=== PATIENT | female | born 1970 | race Caucasian/White ===

== ENCOUNTER 2016-05-17 09:49 | Outpatient (CLI) | payer OTHER ==
[2016-05-17 12:31] LABS: #Basophils 0.1 thou/uL (0.0-0.2); #Eosinphils 0.2 thou/uL (0.0-0.7); #Lymphocytes 2.9 thou/uL (1.20-3.40); #Monocytes 0.3 thou/uL (0.11-0.59); #Neutrophils 3.2 thou/uL (1.40-6.50); %Basophils 1.3 % (0.0-1.0); %Eosinophils 2.7 % (0.0-10.0); %Lymphocytes 43.5 % (21.0-51.0); Hematocrit 46.5 % (36.0-47.0); Mean Platelet Volume 6.6 fL (7.4-10.4); Red Blood Cell (RBC) Count 5.15 mill/uL (4.20-5.40); White Blood Cell (WBC) Count 6.7 thou/uL (4.8-10.8)
[2016-05-17 12:47] LABS: ALT (SGPT) 66 U/L (0-55); AST (SGOT) 41 U/L (5-34); Alkaline Phosphatase 87 U/L (40-150); Anion Gap 17 mmol/L (10-20); BUN (Urea Nitrogen) 13 mg/dL (7.0-18.7); Bilirubin, Total 0.5 mg/dL (0.2-1.2); Calc. Creatinine Clearance 0 mL/min (70-130); Carbon Dioxide 21 mmol/L (22-29); Chloride 105 mmol/L (98-107); Estimated GFR-MDRD 90; Globulin 3.2 g/dL (2.4-3.5); LDL Cholesterol, Calculated 187 mg/dL; Protein, Total 7.4 g/dL (6.0-8.3)
== END 2016-05-17 09:50 | disposition home or self-care (01) ==
LOC: NAVSJIPCSP 09:49
PROVIDERS: ATTEND Internal Medicine
DX: E03.9 Hypothyroidism, unspecified (principal); E78.5 Hyperlipidemia, unspecified; M47.27 Other spondylosis with radiculopathy, lumbosacral region
CPT/HCPCS: 36415; 80053; 80061; 84443; 85025

== ENCOUNTER 2016-07-04 11:26 | Outpatient (CLI) | payer OTHER | END 2016-07-04 11:27 | LOC: NAVSJIPCSP 11:26 | PROVIDERS: ATTEND Internal Medicine | DX: N30.00 Acute cystitis without hematuria (principal) | CPT/HCPCS: 87086 ==

== ENCOUNTER 2016-10-18 12:36 | Outpatient (CLI) | payer OTHER | END 2016-10-18 12:37 | disposition home or self-care (01) | LOC: NAVSJIPCSP 12:36 | DX: N89.8 Other specified noninflammatory disorders of vagina (principal) | CPT/HCPCS: 87480; 87510; 87660 ==

== ENCOUNTER 2017-07-28 10:28 | Outpatient (CLI) | payer BC | END 2017-07-28 10:29 | disposition home or self-care (01) | LOC: NAV DTY OP 10:28 | PROVIDERS: ATTEND Internal Medicine | DX: R73.09 Other abnormal glucose (principal) | CPT/HCPCS: 97802 ==

== ENCOUNTER 2018-02-05 12:54 | Outpatient (CLI) | payer BC ==
[2018-02-05 13:05] LABS: Bilirubin Negative (Negative); Blood, Urine Large (Negative); Clarity Slightly Cloudy (Clear); Glucose, Urine (Dipstick) Negative (Negative); Leukocyte Large (Negative); Nitrite Negative (Negative); Protein, Urine (Dipstick) 30 mg/dL (Neg-Trace); Specific Gravity, Urine 1.015 (1.005-1.030)
[2018-02-05 13:11] LABS: #Basophils 0.1 thou/uL (0.0-0.2); #Eosinphils 0.2 thou/uL (0.0-0.7); #Lymphocytes 5.1 thou/uL (1.20-3.40); #Monocytes 0.9 thou/uL (0.11-0.59); #Neutrophils 10.8 thou/uL (1.40-6.50); %Basophils 0.6 % (0.0-1.0); %Eosinophils 1.4 % (0.0-10.0); %Lymphocytes 29.6 % (21.0-51.0); %Monocytes 5.4 % (0.0-10.0); Hemoglobin 15.1 g/dL (12.0-16.0); Mean Corpuscular HGB CONC 32.8 g/dL (32.0-36.0); Mean Corpuscular Volume 88.3 fL (78.0-98.0); Mean Platelet Volume 7.9 fL (7.4-10.4); Platelet Count 383 thou/uL (130-400); RBC Distribution Width 12.4 % (11.5-14.5); Red Blood Cell (RBC) Count 5.21 mill/uL (4.20-5.40); White Blood Cell (WBC) Count 17.1 thou/uL (4.8-10.8)
[2018-02-05 13:14] LABS: Bacteria/HPF 1+ HPF (None Seen); RBC/HPF GREATER THAN 50-TNTC HPF (0-3); Squamous Epithelial 0-3 HPF (0-3); WBC/HPF None Seen HPF (0-3)
[2018-02-05 13:15] LABS: Other Microscopic Description 1+ GLITTER CELLS
== END 2018-02-05 12:55 ==
LOC: NAV LABSP 12:54
PROVIDERS: ATTEND Internal Medicine
DX: R31.9 Hematuria, unspecified (principal)
CPT/HCPCS: 81003; 81015; 85025; 87077; 87086

== ENCOUNTER 2019-05-01 10:17 | Outpatient (CLI) | payer BC ==
--- NOTE | 2019-05-01 12:41 | RAD ---
CERVICAL SPINE SERIE 3 VIEWS: Date: 05/01/2019 HISTORY: Back pain. Previous neck surgery. COMPARISON: 07/31/14 and 12/17/2015 studies. FINDINGS: Anterior plate and screws again noted extending from C5 to C7. One of the screws at C7 appears to hav e backed out slightly, but this is a stable finding as compared to the 2016 study. There are some deg enerative facet changes. There is mild osteophytic change along the course of the spine. Disc narrowi ng at C7-T1 level. IMPRESSION: Stable postoperative change. Some slight progression to the arthritic change mainly related to the fa cet joints as compared to the 2016 exam. POS: [facility]
== END 2019-05-01 10:18 | disposition home or self-care (01) ==
LOC: NAV RAD 10:17
PROVIDERS: ATTEND Internal Medicine
DX: G44.219 Episodic tension-type headache, not intractable (principal); M46.92 Unspecified inflammatory spondylopathy, cervical region; Z98.890 Other specified postprocedural states
CPT/HCPCS: 72040

== ENCOUNTER 2019-12-10 17:16 | Emergency (ER) | payer BC ==
[2019-12-10] MEDS ORDERED: Boostrix 0.5 ML VIAL ONE (17:45)
[2019-12-10] MEDS ORDERED: Acetaminophen 500 MG TAB ONE (17:47)
== END 2019-12-10 18:08 | disposition home or self-care (01) ==
LOC: NAV ERS 17:16
DX: S01.81XA Laceration without foreign body of other part of head, initial encounter (principal); E78.5 Hyperlipidemia, unspecified; E03.9 Hypothyroidism, unspecified; Z79.84 Long term (current) use of oral hypoglycemic drugs; Z79.899 Other long term (current) drug therapy; W22.8XXA Striking against or struck by other objects, initial encounter
CPT/HCPCS: 12002; 90471; 90715

== ENCOUNTER 2020-10-05 17:10 | Outpatient (CLI) | payer BC | END 2020-10-05 17:11 | disposition home or self-care (01) | LOC: NAV RAD 17:10 | PROVIDERS: ATTEND Nurse Practitioner Adult Health | DX: M54.6 Pain in thoracic spine (principal); M47.814 Spondylosis without myelopathy or radiculopathy, thoracic region | CPT/HCPCS: 72072 ==

== ENCOUNTER 2021-01-06 08:38 | Outpatient (CLI) | payer BC | END 2021-01-06 08:39 | disposition home or self-care (01) | LOC: NAV RAD 08:38 | PROVIDERS: ATTEND Internal Medicine | DX: M54.2 Cervicalgia (principal); L98.9 Disorder of the skin and subcutaneous tissue, unspecified | CPT/HCPCS: 72040 ==